=== PATIENT | female | born 1965 | race African-American/Black ===

== ENCOUNTER 2016-05-21 13:31 | Emergency (ER) | payer OTHER ==
[~2016-05-21] VITALS: Ht 165.1 cm; Wt 50.0 kg
[2016-05-21 13:32] VITALS: BP 117/80; PULSE 86; RESP 16; TEMP 97.7; O2SAT 98
[2016-05-21 13:39] VITALS: BP 117/80; PULSE 86; RESP 18; TEMP 98.7; O2SAT 98
[2016-05-21] MEDS ORDERED: DARU1TAB2 PO (13:47)
[2016-05-21] MEDS ORDERED: SULF1TAB23 PO (13:47)
[2016-05-21] MEDS ORDERED: EMTR1TAB4 PO (13:47)
--- NOTE | 2016-05-21 14:12 | PD ---
HPI Chief Complaint: Injury Time Seen by Provider: 13:55 Travel History International Travel<30 days: No Contact w/Intl Traveler<30days: No Traveled to known affect area: No History of Present Illness HPI Patient comes in complaining of retained foreign body to the plantar surface of her right foot that occurred 3 days ago. Patient states she seen at urgent care yesterday had x-rays done, tetanus updated, and started on antibiotics. Patient states they attempted to remove foreign body yesterday without success and was told follow-up however decided to come to the emergency department today for further treatment and evaluation. Patient reports tenderness around the site of the foreign body without radiation. Pain is worse with walking. Patient denies anything making it better. Denies any fevers. History Social History Alcohol Use: No Tobacco Use: Yes Allergies-Medications (Allergen,Severity, Reaction): Coded Allergies: No Known Allergies (Unverified , 05/21/16) Reported Meds & Prescriptions Reported Meds & Active Scripts Active Reported Sulfamethoxazole-Trimethoprim 800-160 Mg Tab 1 Tab PO BID Prezcobix (Darunavir-Cobicistat) 800-150 Mg Tab 1 Tab PO DAILY Descovy (Emtricitabine-Tenofovir Alafenamide) 200-25 mg Tab 1 Tab PO DAILY Review of Systems Except as stated in HPI: all other systems reviewed are Neg Physical Exam Narrative GENERAL: Well-developed, well nourished, in no acute distress, and non-ill appearing. SKIN: Warm and dry. Patient reports tenderness to palpation plantar aspect right foot, areas states the foreign body is. There is no visible or palpable foreign body noted. There is no signs of infection at this time. HEAD: Atraumatic. Normocephalic. EYES: Pupils equal and round. EOMI. No scleral icterus. No injection or drainage. ENT: No nasal bleeding or discharge. Mucous membranes pink and moist. NECK: Trachea midline. Supple. No nuclear rigidity. RESPIRATORY: No accessory muscle use. No respiratory distress. MUSCULOSKELETAL: No obvious deformities. No clubbing. No cyanosis. No edema. Full range of motion. NEUROLOGICAL: Awake and alert. No obvious cranial nerve deficits. Motor grossly within normal limits. Normal speech. PSYCHIATRIC: Appropriate mood and affect; insight and judgment normal. Data Data Last Documented VS Vital Signs Date Time Temp Pulse Resp B/P Pulse Ox O2 Delivery O2 Flow Rate FiO2 05/21/16 13:39 98.7 86 18 117/80 98 05/21/16 13:32 Room Air MDM Medical Screen Exam Complete: Yes Emergency Medical Condition: No Narrative Course History and physical exam findings are not consistent with an emergent medical condition. She was given the option of receiving additional care, but has declined. Therefore the appropriate counseling recommendations were discussed with the patient and she was instructed to follow-up with her primary care physician as soon as possible for reevaluation. Patient was also informed of community resources from which she can obtain additional care. She is agreeable and verbalizes an understanding of the proposed plan. The patient states she will immediately return to the emergency department if her current complaints do not improve, new symptoms arise, or emergent condition develops. Patient ambulated out of the emergency department without difficulty. Primary Impression: Encounter for medical screening examination Disposition: EDGO-ED USE ONLY Condition: Stable Ryan Gandara May 21, 2016 14:11
== END 2016-05-21 14:21 | disposition left against medical advice (07) ==
LOC: EDBD → NEPB 13:31
DX: S90.851A Superficial foreign body, right foot, initial encounter (principal)
CPT/HCPCS: 99281

== ENCOUNTER 2016-07-14 20:19 | Emergency (ER) | payer OTHER ==
[~2016-07-14] VITALS: Ht 167.6 cm; Wt 57.0 kg
[~2016-07-14 20:19] MED LIST: DARU1TAB2 PO; EMTR1TAB4 PO; SULF1TAB23 PO
[2016-07-14 20:25] VITALS: BP 132/92; PULSE 92; RESP 20; TEMP 98.7; O2SAT 98
--- NOTE | 2016-07-14 20:49 | PD ---
HPI Chief Complaint: wants detox Time Seen by Provider: 20:35 Travel History International Travel<30 days: No Contact w/Intl Traveler<30days: No Traveled to known affect area: No History of Present Illness HPI Patient is a 50 year old female who comes in after using cocaine, heroine and pills. She says she wants detox. She says "I have a drug problem." She has no complaints at this time other than she wants gatorade and palu crackers. She says she wants to be [facility] so she has a place to sleep for the night. She would like me to call police to transport her to [facility] for [facility]. She has no medical complaints at this time, she just wants a place to sleep for the night. [facility] Past Medical History Autoimmune Disease: Yes (HIV POSITIVE) Past Surgical History Appendectomy: Yes Social History Alcohol Use: No Tobacco Use: Yes Substance Use: Yes (3 days clean crack) Allergies-Medications (Allergen,Severity, Reaction): Coded Allergies: No Known Allergies (Unverified , 05/21/16) Reported Meds & Prescriptions Reported Meds & Active Scripts Active Reported Sulfamethoxazole-Trimethoprim 800-160 Mg Tab 1 Tab PO BID Prezcobix (Darunavir-Cobicistat) 800-150 Mg Tab 1 Tab PO DAILY Descovy (Emtricitabine-Tenofovir Alafenamide) 200-25 mg Tab 1 Tab PO DAILY Review of Systems General / Constitutional: No: Fever, Chills HENT: No: Headaches, Lightheadedness Cardiovascular: No: Chest Pain or Discomfort Respiratory: No: Shortness of Breath Gastrointestinal: No: Nausea, Vomiting Musculoskeletal: No: Weakness Skin: No Rash, No Change in Pigmentation Neurologic: No: Weakness, Dizziness Physical Exam Narrative GENERAL: Awake and alert, in no acute distress. SKIN: Warm and dry. HEAD: Atraumatic. Normocephalic. EYES: Pupils equal and round. No scleral icterus. Extraocular movements intact. ENT: Mucous membranes pink and moist. NECK: Trachea midline. No JVD. CARDIOVASCULAR: Regular rate and rhythm. No murmur appreciated. RESPIRATORY: No accessory muscle use. Clear to auscultation. Breath sounds equal bilaterally. MUSCULOSKELETAL: No obvious deformities. No clubbing. No cyanosis. No edema. NEUROLOGICAL: Awake and alert. No obvious cranial nerve deficits. Motor grossly within normal limits. Normal speech. PSYCHIATRIC: Appropriate mood and affect; insight and judgment normal. Data Data Last Documented VS Vital Signs Date Time Temp Pulse Resp B/P Pulse Ox O2 Delivery O2 Flow Rate FiO2 07/15/16 01:27 80 16 120/82 100 07/14/16 20:25 98.7 [facility] Medical Decision Making Medical Screen Exam Complete: Yes Emergency Medical Condition: Yes Medical Record Reviewed: Yes Differential Diagnosis Drug intoxication versus malingering versus overdose Narrative Course Patient is a 50-year-old female who comes in after using cocaine and other drugs. She has no medical complaints at this time. She says she wants detox. Patient informed that she can go to [facility] for [facility]. She says she needs to be [place] [facility] so she has a place to sleep tonight. She is requesting Gatorade and paul crackers. Since the patient has no medical complaints at this time. She will be discharged and given information for [facility] and detox. Patient refused to have vitals taken. Diagnosis Primary Impression: Drug abuse Referrals: [facility] (Out patient) Patient Instructions: Polysubstance Abuse (ED) Additional Instructions: If you want Detox, you can go to [facility] for further services. Avoid drug use. Return to the ED as needed for any worsening symptoms. Disposition: 01 DISCHARGE HOME Condition: Stable Mary Erickson MD Jul 14, 2016 20:49
[2016-07-15 01:27] VITALS: BP 120/82
== END 2016-07-15 00:55 | disposition home or self-care (01) ==
LOC: NEPE 20:19
DX: F14.10 Cocaine abuse, uncomplicated (principal)
CPT/HCPCS: 99283

== ENCOUNTER 2016-07-30 04:03 | Emergency (ER) | payer OTHER ==
[~2016-07-30] VITALS: Ht 167.6 cm; Wt 63.0 kg
[2016-07-30 04:07] VITALS: BP 128/91; PULSE 88; RESP 14; TEMP 97.6; O2SAT 100
[2016-07-30] MEDS ORDERED: LIDOCAINE HCL 1% 50 ML VIAL IM ONE (06:15)
[2016-07-30] MEDS ORDERED: AZITHROMYCIN PWD FOR SUSP 1 GM PACKET PO ONE (06:15)
[2016-07-30] MEDS ORDERED: cefTRIAXone 250 MG VIAL IM ONE (06:15)
[2016-07-30 06:32] LABS: BLOOD, URINE NEG (NEG); COMMENT (UR) CULT NOT INDICATED; CULTURE IF INDICATED CULT NOT INDICATED; GLUCOSE,URINE NEG (NEG); KETONE, URINE NEG (NEG); MUCUS URINE FEW /lpf (OCC); NITRITE,URINE NEG (NEG); PH, URINE 6.5 (5.0-8.5); SQUAMOUS EPITHELIAL CELL URINE 5 /hpf (0-5); URINE COLOR LIGHT-YELLOW (YELLW/STRAW)
[2016-07-30] MEDS ORDERED: METR-1 PO (06:41)
--- NOTE | 2016-07-30 06:41 | PD ---
HPI Chief Complaint: [place] Problem/Complaint Time Seen by Provider: 06:08 Travel History International Travel<30 days: No Contact w/Intl Traveler<30days: No Traveled to known affect area: No History of Present Illness HPI The patient is 50 is old. She describes vaginal discharge. She reports some dysuria. She is afraid she might have an STD. Duration a few days. She reports multiple partners typically unprotected intercourse. No abd pain n/v/d or fever. PFSH Past Medical History Autoimmune Disease: Yes (HIV POSITIVE) ?: Not Dilation and Curettage (D&C): Yes Past Surgical History Appendectomy: Yes Social History Alcohol Use: No Tobacco Use: Yes Substance Use: Yes Allergies-Medications (Allergen,Severity, Reaction): Coded Allergies: Darvocet-N 100 (Verified Allergy, Unknown, 07/30/16) Penicillin (Verified Allergy, Unknown, 07/30/16) Reported Meds & Prescriptions Reported Meds & Active Scripts Active Reported Sulfamethoxazole-Trimethoprim 800-160 Mg Tab 1 Tab PO BID Prezcobix (Darunavir-Cobicistat) 800-150 Mg Tab 1 Tab PO DAILY Descovy (Emtricitabine-Tenofovir Alafenamide) 200-25 mg Tab 1 Tab PO DAILY Review of Systems Except as stated in HPI: all other systems reviewed are Neg Physical Exam Narrative GENERAL: 89-year-old female pleasant no acute distress GENITOURINARY: Minimal discharge, clear. No blood. No tenderness. SKIN: Warm and dry. HEAD: Atraumatic. Normocephalic. EYES: Pupils equal and round. No scleral icterus. No injection or drainage. ENT: No nasal bleeding or discharge. Mucous membranes pink and moist. NECK: Trachea midline. No JVD. CARDIOVASCULAR: Regular rate and rhythm. No murmur appreciated. RESPIRATORY: No accessory muscle use. Clear to auscultation. Breath sounds equal bilaterally. GASTROINTESTINAL: Abdomen soft, non-tender, nondistended. Hepatic and splenic margins not palpable. MUSCULOSKELETAL: No obvious deformities. No clubbing. No cyanosis. No edema. NEUROLOGICAL: Awake and alert. No obvious cranial nerve deficits. Motor grossly within normal limits. Normal speech. PSYCHIATRIC: Appropriate mood and affect; insight and judgment normal. Data Data Last Documented VS Vital Signs Date Time Temp Pulse Resp B/P Pulse Ox O2 Delivery O2 Flow Rate FiO2 07/30/16 05:55 88 14 07/30/16 04:07 97.6 128/91 100 Room Air VS reviewed Orders Gc And Chlamydia Pcr (07/30/16 06:08) Wet Prep Profile (07/30/16 06:08) Urinalysis - C+S If Indicated (07/30/16 06:08) Ed Urine Pregnancytest Poc (07/30/16 06:08) Azithromycin Powd Pack (Zithromax Powd P (07/30/16 06:15) Ceftriaxone Inj (Rocephin Inj) (07/30/16 06:15) Lidocaine 1% Inj (50 Ml) (Xylocaine 1% I (07/30/16 06:15) Labs Laboratory Tests Test 07/30/16 06:15 Urine Color LIGHT-YELLOW Urine Turbidity CLEAR Urine pH 6.5 Urine Specific [place] 1.010 Urine Protein NEG mg/dL Urine Glucose (UA) NEG mg/dL Urine Ketones NEG mg/dL Urine Occult Blood NEG Urine Nitrite NEG Urine Bilirubin NEG Urine Urobilinogen LESS THAN 2.0 MG/DL Urine Leukocyte Esterase TRACE Urine RBC LESS THAN 1 /hpf Urine WBC 2 /hpf Urine Squamous Epithelial 5 /hpf Cells Urine Mucus FEW /lpf Microscopic Urinalysis Comment CULT NOT INDICATED Clue Cells (Wet Prep) PRESENT Vaginal Trichomonas (Wet Prep) NONE SEEN Vaginal Yeast (Wet Prep) NONE SEEN MDM Medical Decision Making Medical Screen Exam Complete: Yes Emergency Medical Condition: Yes Medical Record Reviewed: Yes Differential Diagnosis IUP, UTI, ectopic , ov torsion, appendicitis, TOA, cervicitis, BV, Trichomoniasis, ov cyst, hernia, mittelschmerz, pain from menstruation Narrative Course Patient has bacterial vaginosis. Flagyl prescribed. Empiric coverage started. Diagnosis Primary Impression: Bacterial vaginosis Referrals: [facility] Dept. 2 days Additional Instructions: You have a choice when it comes to health care, and we are glad that you chose [facility]. Hopefully, we have met your expectations on today's visit. You are welcome to return to [facility] at any time, as we are committed to meeting the health care needs of our community. Med/Other Pt SpecificInfo: Prescription(s) given Scripts Metronidazole (Flagyl)500 Mg [id number] Mg PO BID 7 Days Ref 0 Prov:Grayson Trejo MD 07/30/16 Disposition: DISCHARGE HOME Condition: Stable Grayson Trejo MD Jul 30, 2016 06:41
[2016-07-30] MEDS ORDERED: metroNIDAZOLE 500 MG TAB PO ONE (06:45)
[2016-07-30 08:16] LABS: CHLAMYDIA PCR NOT DETECTED (NOT DETECT); NEISSERIA PCR DETECTED (NOT DETECT)
== END 2016-07-30 07:02 | disposition home or self-care (01) ==
LOC: NEPC 04:03
DX: N76.0 Acute vaginitis (principal); B20 Human immunodeficiency virus [HIV] disease
CPT/HCPCS: 81001; 87210; 87491; 87591; 96372; 99283; J0696